=== PATIENT | male | born 1985 | race Two or more races ===

== ENCOUNTER 2016-10-31 13:56 | Emergency (ER) | payer SELFPAY ==
[~2016-10-31] VITALS: Ht 160 cm; Wt 81.6 kg
[~2016-10-31 13:56] MED LIST: MARIJUANA; NOR10T
[2016-10-31 16:01] VITALS: BP 137/87
[2016-10-31] MEDS ORDERED: LIDOCAINE 1% HCL (LOCAL ANESTH.) INJ 20ML MDV IJ ONE (16:15)
== END 2016-10-31 16:50 | disposition home or self-care (01) ==
LOC: ER 13:58
DX: S01.512A Laceration without foreign body of oral cavity, initial encounter (principal); F17.210 Nicotine dependence, cigarettes, uncomplicated; F12.10 Cannabis abuse, uncomplicated; W22.8XXA Striking against or struck by other objects, initial encounter; Y93.89 Activity, other specified; Y99.8 Other external cause status; Y92.89 Other specified places as the place of occurrence of the external cause
CPT/HCPCS: 12011

== ENCOUNTER 2016-11-08 10:44 | Emergency (ER) | payer SELFPAY ==
[~2016-11-08] VITALS: Ht 160 cm; Wt 81.6 kg
[2016-11-08 11:10] VITALS: BP 120/78
== END 2016-11-08 11:17 | disposition home or self-care (01) ==
LOC: ER 10:44
DX: S01.512D Laceration without foreign body of oral cavity, subsequent encounter (principal); F17.210 Nicotine dependence, cigarettes, uncomplicated; F12.10 Cannabis abuse, uncomplicated

== ENCOUNTER 2016-11-13 16:44 | Emergency (ER) | payer SELFPAY ==
[~2016-11-13] VITALS: Ht 160 cm; Wt 77.1 kg
[2016-11-13 17:13] VITALS: BP 157/102
== END 2016-11-13 17:32 | disposition home or self-care (01) ==
LOC: ER 16:59
DX: S01.512D Laceration without foreign body of oral cavity, subsequent encounter (principal); F17.210 Nicotine dependence, cigarettes, uncomplicated; F12.10 Cannabis abuse, uncomplicated; Z48.02 Encounter for removal of sutures

== ENCOUNTER 2019-09-20 22:28 | Emergency (ER) | payer MEDICAID ==
[~2019-09-20] VITALS: Ht 160 cm; Wt 74.8 kg
[2019-09-20 22:55] VITALS: BP 143/99
[2019-09-20 23:12] LABS: Amphetamine Screen, Urine NEGATIVE (NEGATIVE); Barbiturate Scree,Urine NEGATIVE (NEGATIVE); Benzodiazephine Screen, Urine NEGATIVE (NEGATIVE); Cannabinoid Screen, Urine NEGATIVE (NEGATIVE); Cocaine Screen, Urine NEGATIVE (NEGATIVE); Opiate Scree,Urine NEGATIVE (NEGATIVE); Phencyclidine Screen, Urine NEGATIVE (NEGATIVE)
== END 2019-09-20 23:46 ==
LOC: ER 22:29
DX: F10.129 Alcohol abuse with intoxication, unspecified (principal); Y90.0 Blood alcohol level of less than 20 mg/100 ml; F17.210 Nicotine dependence, cigarettes, uncomplicated; F12.10 Cannabis abuse, uncomplicated
CPT/HCPCS: 71250; 80307